=== PATIENT | male | born 1930 | race Caucasian/White ===

== ENCOUNTER 2017-01-21 13:45 | Observation (INO) | payer MEDICARE ==
[2017-01-21] VITALS (10 sets, daily range): BP systolic 133–171; BP diastolic 69–84; PULSE 49–60; RESP 16–28; TEMP 98.1–98.3; O2SAT 94–100
[~2017-01-21] VITALS: Ht 177.8 cm; Wt 89.0 kg
[2017-01-21] MEDS ORDERED: SODIUM CHLORIDE 0.9% FLUSH 10 ML FLUSH IVF PRN (14:15)
[2017-01-21] MEDS ORDERED: SODIUM CHLORID 0.9% 500 ML INJ 500 ML IV ONE (14:15)
[2017-01-21] MEDS ORDERED: ASPIRIN 81 MG CHEW TAB PO ONE (14:15)
[2017-01-21 14:48] LABS: AUTOMATED NEUTROPHIL # 5.8 TH/MM3 (1.8-7.7); BASOPHIL # 0.1 TH/MM3 (0-0.2); BASOPHIL % 0.7 % (0.0-2.0); EOSINOPHIL # 0.6 TH/MM3 (0-0.4); EOSINOPHIL % 7.6 % (0.0-4.0); HEMATOCRIT 42.4 % (39.0-51.0); HEMO FLAGS DIFF FINAL; LYMPH % 13.3 % (9.0-44.0); LYMPHOCYTE # 1.1 TH/MM3 (1.0-4.8); MEAN CELL VOLUME 90.5 FL (80.0-100.0); MEAN CORPUSCULAR HEMOGLOBIN 30.2 PG (27.0-34.0); MEAN CORPUSCULAR HGB CONC 33.4 % (32.0-36.0); MONO % 7.4 % (0.0-8.0); PLATELET COUNT 214 TH/MM3 (150-450); RED BLOOD COUNT 4.69 MIL/MM3 (4.50-5.90); RED CELL DISTRIBUTION WIDTH 14.1 % (11.6-17.2); WHITE BLOOD COUNT 8.2 TH/MM3 (4.0-11.0)
[2017-01-21 15:08] LABS: ALT (GPT) 30 U/L (12-78); ANION GAP 6 MEQ/L (5-15); AST (GOT) 15 U/L (15-37); BICARBONATE 26.9 MEQ/L (21.0-32.0); BLOOD UREA NITROGEN 28 MG/DL (7-18); CHLORIDE 108 MEQ/L (98-107); GLOMERULAR FILTRATION RATE 43 ML/MIN (>89); MAGNESIUM 2.4 MG/DL (1.5-2.5); POTASSIUM 4.7 MEQ/L (3.5-5.1); SODIUM (NA) 141 MEQ/L (136-145)
[2017-01-21 15:09] LABS: PROTHROMBIN TIME - PATIENT 10.8 SEC (9.8-11.6)
[2017-01-21 15:13] LABS: ALKALINE PHOSPHATASE 94 U/L (45-117); TOTAL BILIRUBIN ADULT 0.5 MG/DL (0.2-1.0)
--- NOTE | 2017-01-21 15:19 | PD ---
HPI Chief Complaint: Chest Pain Time Seen by Provider: 13:56 Travel History International Travel<30 days: No Contact w/Intl Traveler<30days: No Traveled to known affect area: No History of Present Illness HPI Is an 86-year-old man who presents to the emergency department complaining of chest pain. He had a little bit of chest pain yesterday when its own. This afternoon about 30 minutes prior to arrival he had the recurrence of the chest pain. He was happened while he was sitting down. It was consistent and worse and yesterday until he called him once. 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 He is going to follow-up with Dr. Fox. He has not had a stress test in the past 3+ years. He does not get chest pain regularly. He otherwise had been feeling generally well and healthy. No recent illness or injury. No recent change in exercise tolerance. No other complaints. History Past Medical History Narrative Medical CAD, he previous SC, previous CABG in approximately 2010 or so Hyperlipidemia Hypertension Tetanus Vaccination: < 5 Years Influenza Vaccination: Yes Social History Alcohol Use: Yes (occu) Tobacco Use: No Allergies-Medications (Allergen,Severity, Reaction): Coded Allergies: meperidine (Verified Adverse Reaction, Intermediate, Nausea/Vomiting, ) Review of Systems Except as stated in HPI: all other systems reviewed are Neg Physical Exam Narrative GENERAL: Well-appearing 86-year-old man, no acute distress. SKIN: Focused skin assessment warm/dry. HEAD: Atraumatic. Normocephalic. CARDIOVASCULAR: Regular rate and rhythm. No murmur appreciated. RESPIRATORY: No accessory muscle use. Clear to auscultation. Breath sounds equal bilaterally. GASTROINTESTINAL: Abdomen soft, non-tender, nondistended. Hepatic and splenic margins not palpable. MUSCULOSKELETAL: No obvious deformities. No edema. NEUROLOGICAL: Awake and alert. No obvious cranial nerve deficits. Motor grossly within normal limits. Normal speech. PSYCHIATRIC: Appropriate mood and affect; insight and judgment normal. Data Data Last Documented VS Vital Signs Date Time Temp Pulse Resp B/P (MAP) Pulse Ox O2 Delivery O2 Flow Rate FiO2 01/21/17 14:26 98 Nasal Cannula 2.00 01/21/17 14:26 58 24 133/ 01/21/17 13:52 98.3 Orders Orders Electrocardiogram (01/21/17 14:11) Ckmb (Isoenzyme) Profile (01/21/17 14:11) Complete Blood Count With Diff (01/21/17 14:11) Comprehensive Metabolic Panel (01/21/17 14:11) Magnesium (Mg) (01/21/17 14:11) Prothrombin Time / Inr (Pt) (01/21/17 14:11) Act Partial Throm Time (Ptt) (01/21/17 14:11) Troponin I (01/21/17 14:11) Lipase (01/21/17 14:11) Chest, Single Ap (01/21/17 14:11) Ecg Monitoring (01/21/17 14:11) Bilateral Bp Monitoring (01/21/17 14:11) Iv Access Insert/Monitor (01/21/17 14:11) Oximetry (01/21/17 14:11) Oxygen Administration (01/21/17 14:11) Aspirin Chew (Aspirin Chew) (01/21/17 14:15) Sodium Chloride 0.9% Flush (Ns Flush) (01/21/17 14:15) Sodium Chlorid 0.9% 500 Ml Inj (Ns 500 M (01/21/17 14:15) Labs Laboratory Tests Test 01/21/17 14:00 White Blood Count 8.2 TH/MM3 Red Blood Count 4.69 MIL/MM3 Hemoglobin 14.2 GM/DL Hematocrit 42.4 % Mean Corpuscular Volume 90.5 FL Mean Corpuscular Hemoglobin 30.2 PG Mean Corpuscular Hemoglobin Concent 33.4 % Red Cell Distribution Width 14.1 % Platelet Count 214 TH/MM3 Mean Platelet Volume 8.9 FL Neutrophils (%) (Auto) 71.0 % Lymphocytes (%) (Auto) 13.3 % Monocytes (%) (Auto) 7.4 % Eosinophils (%) (Auto) 7.6 % Basophils (%) (Auto) 0.7 % Neutrophils # (Auto) 5.8 TH/MM3 Lymphocytes # (Auto) 1.1 TH/MM3 Monocytes # (Auto) 0.6 TH/MM3 Eosinophils # (Auto) 0.6 TH/MM3 Basophils # (Auto) 0.1 TH/MM3 CBC Comment DIFF FINAL Differential Comment Prothrombin Time 10.8 SEC Prothromb Time International Ratio 1.0 RATIO Activated Partial Thromboplast Time 25.0 SEC Blood Urea Nitrogen 28 MG/DL Creatinine 1.56 MG/DL Random Glucose 90 MG/DL Total Protein 7.7 GM/DL Albumin 3.8 GM/DL Calcium Level 8.5 MG/DL Magnesium Level 2.4 MG/DL Alkaline Phosphatase 94 U/L Aspartate Amino Transf (AST/SGOT) 15 U/L Alanine Aminotransferase (ALT/SGPT) 30 U/L Total Bilirubin 0.5 MG/DL Sodium Level 141 MEQ/L Potassium Level 4.7 MEQ/L Chloride Level 108 MEQ/L Carbon Dioxide Level 26.9 MEQ/L Anion Gap 6 MEQ/L Estimat Glomerular Filtration Rate 43 ML/MIN Total Creatine Kinase 77 U/L Troponin I LESS THAN 0.02 NG/ML Lipase 99 U/L MDM Medical Decision Making Medical Screen Exam Complete: Yes Emergency Medical Condition: Yes Interpretation(s) My review of EKG: Sinus bradycardia at a rate of 58, right bundle branch block with inferior Q waves, 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 LABS: CBC unremarkable. CMP remarkable for mildly elevated BUN/creatinine. Troponin negative. Lipase unremarkable. Coags unremarkable. My review of chest x-ray: No acute disease. Differential Diagnosis ACS, gastritis, pancreatitis, angina, other Narrative Course Medical decision making INITIAL: Is an 86-year-old man who presents to the emergency department with chest pain. History of ACS. Chest pain concerning for angina. Looks well now. No pain now. We'll check labs, x-ray, reassess. Likely chest pain Center. Diagnosis Primary Impression: Chest pain Filiberto Chapa MD Jan 21, 2017 15:19
[2017-01-21 15:20] LABS: CREATINE KINASE 77 U/L (39-308)
[2017-01-21] MEDS ORDERED: LIPI10TA PO (15:28)
[2017-01-21] MEDS ORDERED: ASPI81CH CHEW (15:28)
[2017-01-21] MEDS ORDERED: ZETI10TA5 PO (15:28)
[2017-01-21] MEDS ORDERED: ATEN25TA PO (15:28)
[2017-01-21] MEDS ORDERED: LISI10TA3 PO (15:28)
[2017-01-21] MEDS ORDERED: LAMO100 PO (15:28)
--- NOTE | 2017-01-21 15:53 | RADRPT ---
EXAM DATE/TIME: 01/21/2017 14:18 [facility] COMPARISON: No previous studies available for comparison. INDICATIONS : Chest pain. MEDICAL HISTORY : Cardiovascular disease. SURGICAL HISTORY : CABG. ENCOUNTER: Initial ACUITY: 1 day PAIN SCORE: 6/10 LOCATION: Bilateral chest FINDINGS: A single view of the chest demonstrates the lungs to be symmetrically aerated without evidence of mas s, infiltrate or effusion. The cardiomediastinal contours are unremarkable. Osseous structures are intact. Evidence of prior median sternotomy and CABG. Mild eventration right hemidiaphragm CONCLUSION: The lungs are clear. Roland Lovett MD on January 21, 2017 at 15:50 Board Certified Radiologist. This report was verified electronically.
[2017-01-21] MEDS ORDERED: ACETAMINOPHEN/HYDROcodone 325 MG/7.5 MG TAB PO PRN (16:45)
[2017-01-21] MEDS ORDERED: ACETAMINOPHEN 500 MG CPLT PO PRN (16:45)
[2017-01-21] MEDS ORDERED: RESP: ALBUTEROL 2.5 MG/IPRATROPIUM 0.5 MG NEB (PRN) INH (16:45)
[2017-01-21] MEDS ORDERED: cloNIDine HCL 0.1 MG TAB PO PRN (16:45)
[2017-01-21] MEDS ORDERED: ALPRAZolam 0.25 MG TAB PO PRN (16:45)
[2017-01-21] MEDS ORDERED: RESP: ALBUTEROL 2.5 MG/IPRATROPIUM 0.5 MG NEB (SCH) INH ONE (16:45)
[2017-01-21] MEDS ORDERED: ONDANSETRON HCL 4 MG/2 ML VIAL IV PRN (16:45)
[2017-01-21] MEDS ORDERED: SODIUM CHLORIDE 0.9% FLUSH 5 ML FLUSH IVF PRN (16:45)
--- NOTE | 2017-01-21 16:52 | HHI.HP ---
[facility] Primary Care Physician Raheem Mojica DO Chief Complaint Chest pain History of Present Illness This is a 86-year-old male that presents to ED with his family with a complaint of 2 episodes of chest discomfort. He has history of CAD and states he had a CABG 5-7 years ago. 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 Just moved to this area a few months ago. States that yesterday he had a sharp central chest discomfort lasted about a minute. Then again the same type discomfort occurred this morning also lasting about a minute. He was little short of breath. No nausea or diaphoresis. He also states that he has been coughing a little bit over last few days. Has been clear colored phlegm. No fevers or chills. States the discomfort he has been having is not similar to when he needed his bypass. States the discomfort is not exertional. Review of Systems General: Patient denies fevers, chills recent, and recent travel HEENT: Patient denies headache, sore throat, difficulty swallowing. Cardiovascular: Has the chest discomfort as mentioned above. Denies sensation of heart beating rapidly or irregularly. No syncope. Denies diaphoresis. Respiratory: [place] a little short of breath. Denies inspirational chest discomfort. He has been coughing up clear phlegm. Denies wheezing or hemoptysis. GI: Patient denies nausea, vomiting, diarrhea, abdominal pain, bloody stools. Musculoskeletal: Patient denies joint pain or edema. Denies calf pain or edema. Neurovascular: Patient denies numbness, tingling, weakness in extremities. Denies headache. Endocrine: Denies polyuria and polydipsia. Hematologic: Denies easy bruising. Skin: Denies rash or itching. Past Family Social History Allergies: Coded Allergies: meperidine (Verified Adverse Reaction, Intermediate, Nausea/Vomiting, ) Past Medical History CAD with a CABG 5-7 years ago. Hypertension, hyperlipidemia, seizure disorder. Denies diabetes. Past Surgical History CABG. Reported Medications Reported Meds & Active Scripts Active Reported Lamictal (Lamotrigine) 100 Mg Tab 100 Mg PO BID Lisinopril 10 Mg Tab 10 Mg PO DAILY Zetia (Ezetimibe) 10 Mg Tab 10 Mg PO DAILY Atenolol 25 Mg Tab 20 Mg PO BID Lipitor (Atorvastatin Calcium) 10 Mg Tab 10 Mg PO HS Aspirin 81 Mg Chew 162 Mg CHEW ONCE Active Ordered Medications Current Medications Medications (Trade) Dose Ordered Sig/Ava Route Start Time Stop Time Status Last Admin (NS Flush) 2 ml UNSCH PRN IVF 01/21/17 14:15 Family History There is family history of CAD. Social History Patient does not smoke. Denies alcohol or illicit drugs. Physical Exam Vital Signs Vital Signs Date Time Temp Pulse Resp B/P (MAP) Pulse Ox O2 Delivery O2 Flow Rate FiO2 01/21/17 14:26 98 Nasal Cannula 2.00 01/21/17 14:26 58 24 133/ 98 Nasal Cannula 2.00 01/21/17 13:52 98.3 60 28 133/84 (100) 96 Physical Exam GENERAL: This is a well-nourished, well-developed patient, in no apparent distress. Patient speaks in clear complete sentences. Patient is pleasant. HEENT: Head is atraumatic and normocephalic. Neck is supple without lymphadenopathy and trachea is midline. No JVD or carotid bruits. CARDIOVASCULAR: Regular rate and rhythm without murmurs, gallops, or rubs. RESPIRATORY: There are bilateral expiratory wheezes more so at the bases. Breath sounds equal bilaterally. No rales, or rhonchi. Chest wall is nontender. No use of accessory muscles. GASTROINTESTINAL: Abdomen is nontender, nondistended. Abdomen soft. No obvious pulsatile mass or bruit. No CVA tenderness. Strong femoral pulses bilaterally. Normal bowel sounds in all quadrants. MUSCULOSKELETAL: Patient is moving upper and lower extremities freely. No calf tenderness or edema, no Homans sign. Strong pulses in upper and lower extremities. NEUROLOGICAL: Patient is alert and oriented. Cranial nerves 2-12 are grossly intact. No focal deficits and speech is clear. SKIN: No rash and turgor is normal. Laboratory Laboratory Tests Test 01/21/17 14:00 White Blood Count 8.2 Red Blood Count 4.69 Hemoglobin 14.2 Hematocrit 42.4 Mean Corpuscular Volume 90.5 Mean Corpuscular Hemoglobin 30.2 Mean Corpuscular Hemoglobin Concent 33.4 Red Cell Distribution Width 14.1 Platelet Count 214 Mean Platelet Volume 8.9 Neutrophils (%) (Auto) 71.0 Lymphocytes (%) (Auto) 13.3 Monocytes (%) (Auto) 7.4 Eosinophils (%) (Auto) 7.6 Basophils (%) (Auto) 0.7 Neutrophils # (Auto) 5.8 Lymphocytes # (Auto) 1.1 Monocytes # (Auto) 0.6 Eosinophils # (Auto) 0.6 Basophils # (Auto) 0.1 CBC Comment DIFF FINAL Differential Comment Prothrombin Time 10.8 Prothromb Time International Ratio 1.0 Activated Partial Thromboplast Time 25.0 Blood Urea Nitrogen 28 Creatinine 1.56 Random Glucose 90 Total Protein 7.7 Albumin 3.8 Calcium Level 8.5 Magnesium Level 2.4 Alkaline Phosphatase 94 Aspartate Amino Transf (AST/SGOT) 15 Alanine Aminotransferase (ALT/SGPT) 30 Total Bilirubin 0.5 Sodium Level 141 Potassium Level 4.7 Chloride Level 108 Carbon Dioxide Level 26.9 Anion Gap 6 Estimat Glomerular Filtration Rate 43 Total Creatine Kinase 77 Troponin I LESS THAN 0.02 Lipase 99 Result Diagram: 01/21/17 1400 01/21/17 1400 Imaging Last 48 hours Impressions Chest X-Ray 01/21/17 1411 Signed Impressions: Service Date/Time: Saturday, January 21, 2017 14:18 - CONCLUSION: The lungs are clear. Roland Lovett MD Course Initial EKG has sinus rhythm with right bundle muna block. Caprini VTE Risk Assessment Caprini VTE Risk Assessment: Mod/High Risk (score >= 2) Caprini Risk Assessment Model Point Value = 1 Point Value = 2 Point Value = 3 Point Value = 5 Age 41-60 Minor surgery BMI > 25 kg/m2 Swollen legs Varicose veins or History of unexplained or recurrent spontaneous Oral contraceptives or hormone replacement Sepsis (< 1 month) Serious lung disease, including pneumonia (< 1 month) Abnormal pulmonary function Acute myocardial infarction Congestive heart failure (< 1 month) History of inflammatory bowel disease Medical patient at bed rest Age 61-74 Arthroscopic surgery Major open surgery (> 45 min) Laparoscopic surgery (> 45 min) Malignancy Confined to bed (> 72 hours) Immobilizing plaster cast Central venous access Age >= 75 History of VTE Family history of VTE Factor V Leiden Prothrombin 26115G Lupus anticoagulant Anticardiolipin antibodies Elevated serum homocysteine Heparin-induced thrombocytopenia Other congenital or acquired thrombophilia Stroke (< 1 month) Elective arthroplasty Hip, pelvis, or leg fracture Acute spinal cord injury (< 1 month) Prophylaxis Regimen Total Risk Factor Score Risk Level Prophylaxis Regimen 0-1 Low Early ambulation 2 Moderate Order ONE of the following: *Sequential Compression Device (SCD) *Heparin 5000 units SQ BID 3-4 Higher Order ONE of the following medications: *Heparin 5000 units SQ TID *Enoxaparin/Lovenox 40 mg SQ daily (WT < 150 kg, CrCl > 30 mL/min) *Enoxaparin/Lovenox 30 mg SQ daily (WT < 150 kg, CrCl > 10-29 mL/min) *Enoxaparin/Lovenox 30 mg SQ BID (WT < 150 kg, CrCl > 30 mL/min) AND/OR *Sequential Compression Device (SCD) 5 or more Highest Order ONE of the following medications: *Heparin 5000 units SQ TID (Preferred with Epidurals) *Enoxaparin/Lovenox 40 mg SQ daily (WT < 150 kg, CrCl > 30 mL/min) *Enoxaparin/Lovenox 30 mg SQ daily (WT < 150 kg, CrCl > 10-29 mL/min) *Enoxaparin/Lovenox 30 mg SQ BID (WT < 150 kg, CrCl > 30 mL/min) AND *Sequential Compression Device (SCD) Assessment and Plan Assessment and Plan * Chest pain: Shunt will continue to have serial cardiac enzymes and EKGs for ruling out purposes. He was seen by Dr. Amanuel Hays of cardiology in the chest pain center and will likely have a Lexiscan in the morning if he rules out. He'll be discharged stress test is nonischemic. He'll be given a DuoNeb for his wheezing. * History of CAD: Patient has had a bypass. He needs to make arrangements to follow-up with a local ruffling machine operator. Resume his medications. * Hypertension: Continue current medication. * Hyperlipidemia: Continue current medication. * Seizure disorder: Continue current medication. Patient is stable at this time. He is agreeable to this plan. Jamari Mancuso Jan 21, 2017 16:52
[2017-01-21 18:32] LABS: CREATINE KINASE 73 U/L (39-308)
[2017-01-21] MEDS: SODIUM CHLORIDE 0.9% FLUSH 5 ML FLUSH IVF SCH (20:04)
[2017-01-21] MEDS: lamoTRIgine 100 MG TAB PO SCH (20:04)
[2017-01-21] MEDS: ATENOLOL 25 MG TAB PO SCH (20:04)
[2017-01-21] MEDS ORDERED: ATORVASTATIN 10 MG TAB PO SCH (21:00)
[2017-01-21 22:36] LABS: CREATINE KINASE 64 U/L (39-308)
[2017-01-22 01:46] VITALS: BP 159/68; PULSE 52; RESP 18; TEMP 98.6; O2SAT 96
--- NOTE | 2017-01-22 07:32 | EKG ---
Date Performed: 01/21/2017 Time Performed: 17:13:31 PTAGE: 86 years EKG: SINUS BRADYCARDIA INDETERMINATE AXIS RIGHT BUNDLE BRANCH BLOCK INFERIOR MYOCARDIAL INFARCTI ON ABNORMAL ECG Since PREVIOUS TRACING , no significant change noted PREVIOUS TRACIN01/21/2017 13.54 DOCTOR: Emili Bowers Interpretating Date/Time 01/22/2017 07:31:22
--- NOTE | 2017-01-22 07:33 | EKG ---
Date Performed: 01/21/2017 Time Performed: 13:54:38 PTAGE: 86 years EKG: SINUS BRADYCARDIA INDETERMINATE AXIS RIGHT BUNDLE BRANCH BLOCK INFERIOR MYOCARDIAL INFARCTI ON ABNORMAL ECG Since previous tracing, no significant change noted NO PREVIOUS TRACING DOCTOR: Emili Bowers Interpretating Date/Time 01/22/2017 07:32:33
[2017-01-22 07:56] VITALS: BP 147/73; PULSE 54; RESP 18; TEMP 97.9; O2SAT 95
[2017-01-22 08:00] VITALS: PULSE 60
[2017-01-22 08:24] VITALS: O2SAT 94
[2017-01-22] MEDS ORDERED: PANTOPRAZOLE SOD 40 MG DELAYED RELEASE TAB PO SCH (09:00)
[2017-01-22] MEDS ORDERED: ASPIRIN 325 MG TAB PO SCH (09:00)
[2017-01-22] MEDS: SODIUM CHLORIDE 0.9% FLUSH 5 ML FLUSH IVF SCH (09:00)
[2017-01-22] MEDS ORDERED: EZETIMIBE 10 MG TAB PO SCH (09:00)
[2017-01-22] MEDS ORDERED: LISINOPRIL 10 MG TAB PO SCH (09:00)
[2017-01-22] MEDS ORDERED: REGADENOSON INJ 0.4 MG/5 ML SYR ONE (09:48)
--- NOTE | 2017-01-22 11:21 | RADRPT ---
EXAM DATE/TIME: 01/22/2017 08:58 [facility] COMPARISON: No previous studies available for comparison. INDICATIONS : Mid chest pain for one day. Angina. DOSE: 25.8 mCi Tc99m Myoview at stress. 8.7 mCi Tc99m Myoview at rest. 0.4 mg Lexiscan STRESS SYMPTOMS: Short of breath. EJECTION FRACTION: 26% MEDICAL HISTORY : Cardiovascular disease. Hypertension. SURGICAL HISTORY : CABG ENCOUNTER: Initial ACUITY: 1 day PAIN SCALE: 7/10 LOCATION: Midsternal chest TECHNIQUE: The patient underwent pharmacologic stress with infusion of prescribed dose. Continuous ECG tracing was monitored during stress. Gated SPECT imaging was performed after stress and conventional SPECT i maging was performed at rest. The examination was performed on a SPECT/CT scanner, both attenuation and non-corrected datasets were reviewed. FINDINGS: DISTRIBUTION: The maximum perfused segment at stress is in the septal wall. PERFUSION STUDY: There is mildly to moderately diminished perfusion throughout the posterior basal and inferior henry extending to the cardiac apex. No definite evidence of redistribution. GATED STUDY: Moderate left ventricular chamber enlargement with diffuse hypokinesis. CONCLUSION: Moderate size moderate severity posterior basal, inferior and apical perfusion abnormalities. No defi nite ischemia. Severe LV dysfunction and left ventricular chamber dilatation RISK CATEGORY: High (>3% Annual Mortality Rate) Raheem Price MD on January 22, 2017 at 11:15 Board Certified Radiologist. This report was verified electronically.
[2017-01-22] MEDS: ATENOLOL 25 MG TAB PO SCH (11:26)
[2017-01-22] MEDS: lamoTRIgine 100 MG TAB PO SCH (11:26)
--- NOTE | 2017-01-22 12:21 | HHI.DCPOC ---
Discharge Care Plan Diagnosis: (1) Cardiomyopathy (2) CAD (coronary artery disease) (3) Hx of CABG (4) Hypertension (5) Hyperlipidemia (6) Chest pain Goals to Promote Your Health * To prevent worsening of your condition and complications * To maintain your health at the optimal level Directions to Meet Your Goals Take your medications as prescribed Follow your dietary instruction Follow activity as directed Keep your appointments as scheduled Take your immunizations and boosters as scheduled If your symptoms worsen call your PCP, if no PCP go to Urgent Care Center or Emergency Room Smoking is Dangerous to Your Health. Avoid second hand smoke Call the 24-hour hour crisis hotline for domestic abuse at Jamari Mancuso Jan 22, 2017 12:21
--- NOTE | 2017-01-22 22:25 | TR ---
Date Performed: 01/22/2017 Time Performed: 09:50:17 DOCTOR: Emili Bowers DRUG LIST: CLINICAL HISTORY: REASON FOR TEST: REASON FOR ENDING: OBSERVATION: CONCLUSION: Lexiscan stress test was performed under standard four minute protocol. Radionucl[place] e was injected one minute prior to ending the test. No electrocardiographic abormalities were present to suggest ischemia. Nuclear imaging and interpretation are pending. COMMENTS:
--- NOTE | 2017-01-23 12:04 | EKG ---
Date Performed: 01/22/2017 Time Performed: 07:40:17 PTAGE: 86 years EKG: SINUS BRADYCARDIA RIGHT BUNDLE BRANCH BLOCK INFERIOR MYOCARDIAL INFARCTION ABNORMAL ECG PREVIOUS TRACING : 01/21/2017 17.13 No significant change from previous tracing noted. DOCTOR: Demetrio Nicholson Interpretating Date/Time 01/23/2017 12:02:44
== END 2017-01-22 13:14 | disposition home or self-care (01) ==
LOC: NEPC 13:45 → NEDA 15:31 → NEPGCP 17:42
PROVIDERS: ADMIT Internal Medicine Cardiovascular Disease; ATTEND Internal Medicine Cardiovascular Disease
DX: I42.9 Cardiomyopathy, unspecified (principal); I11.0 Hypertensive heart disease with heart failure; I25.10 Atherosclerotic heart disease of native coronary artery without angina pectoris; R94.31 Abnormal electrocardiogram [ECG] [EKG]; E78.5 Hyperlipidemia, unspecified; Z95.1 Presence of aortocoronary bypass graft
CPT/HCPCS: 71010; 78452; 80053; 82550; 83690; 83735; 84484; 85025; 85610; 85730; 93005; 93017; 94664; 99285; A9502; G0378; J2785; J7040

== ENCOUNTER 2017-04-02 17:55 | Emergency (ER) | payer MEDICARE ==
[~2017-04-02] VITALS: Ht 177.8 cm; Wt 90.0 kg
[~2017-04-02 17:55] MED LIST: ASPI-516 CHEW; ATEN25TA PO; EZET10 PO; LAMO100 PO; LIPI10TA PO; LISI10TA3 PO
[2017-04-02 17:56] VITALS: BP 166/77; PULSE 61; RESP 16; TEMP 98.8; O2SAT 95
[2017-04-02] MEDS ORDERED: IOHEXOL 350 MG/ML 10 ML VIAL (for RAD DIAG) IVCONTRAST ONE (17:56)
[2017-04-02] MEDS ORDERED: MORPHINE SULFATE 4 MG/ML INJ IV PUSH ONE (19:00)
[2017-04-02] MEDS ORDERED: SODIUM CHLORIDE 0.9% FLUSH 10 ML FLUSH IV FLUSH PRN (19:00)
[2017-04-02] MEDS ORDERED: SODIUM CHLORID 0.9% 500 ML INJ 500 ML IV ONE (19:00)
[2017-04-02] MEDS ORDERED: ONDANSETRON HCL 4 MG/2 ML VIAL IVP ONE (19:00)
--- NOTE | 2017-04-02 19:06 | PD ---
HPI Chief Complaint: Abdominal Pain Time Seen by Provider: 18:43 Travel History International Travel<30 days: No Contact w/Intl Traveler<30days: No Traveled to known affect area: No History of Present Illness HPI 86-year-old male presents to the emergency department with sudden onset left anterior lower quadrant pain which started approximately 3 PM this afternoon. Patient states no nausea vomiting or diarrhea. He states his pain is now worsening and is intermittent with the worst of 10 over 10 with certain movements. Patient denies previous history of diverticulitis. Patient has had colonoscopies in the past but denies significant polyps or Colon disease. Patient denies fever or chills or chest pain. 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 ) Prostatectomy: Yes Other Surgery: Yes (3 NECK SURGERIES) Social History Alcohol Use: Yes (occu) Tobacco Use: No Substance Use: No Allergies-Medications (Allergen,Severity, Reaction): Coded Allergies: meperidine (Verified Adverse Reaction, Intermediate, Nausea/Vomiting, ) Reported Meds & Prescriptions Reported Meds & Active Scripts Active Reported Lamictal (Lamotrigine) 100 Mg Tab 100 Mg PO BID Lisinopril 10 Mg Tab 10 Mg PO DAILY Zetia (Ezetimibe) 10 Mg Tab 10 Mg PO DAILY Atenolol 25 Mg Tab 20 Mg PO BID Lipitor (Atorvastatin Calcium) 10 Mg Tab 10 Mg PO HS Aspirin 81 Mg Chew 162 Mg CHEW ONCE Review of Systems Except as stated in HPI: all other systems reviewed are Neg General / Constitutional: No: Fever Eyes: No: Visual changes HENT: No: Headaches Cardiovascular: No: Chest Pain or Discomfort Respiratory: No: Shortness of Breath Gastrointestinal: Positive: Abdominal Pain, No: Nausea, Vomiting, Diarrhea Genitourinary: No: Dysuria Musculoskeletal: No: Pain Skin: No Rash Neurologic: No: Weakness Psychiatric: No: Depression Endocrine: No: Polydipsia Hematologic/Lymphatic: No: Easy Bruising Physical Exam Narrative GENERAL: Patient appears in no acute distress. SKIN: Warm and dry. Normal color. Normal turgor. No rash. HEAD: Atraumatic. Normocephalic. EYES: Pupils equal and round. No scleral icterus. No injection or drainage. ENT: No nasal bleeding or discharge. Mucous membranes pink and moist. Pharynx is clear. Airway is patent. NECK: Trachea midline. Supple and nontender. CARDIOVASCULAR: Regular rate and rhythm. No murmurs gallops or rubs appreciated. RESPIRATORY: No accessory muscle use. Clear to auscultation. Breath sounds equal bilaterally. GASTROINTESTINAL: Abdomen soft, she has significant point tenderness in the left lower quadrant, nondistended. Decreased bowel sounds are noted throughout. No guarding. No CVA tenderness. Hepatic and splenic margins not palpable. MUSCULOSKELETAL: Extremities without clubbing, cyanosis, or edema. No obvious deformities. NEUROLOGICAL: Awake and alert. No obvious cranial nerve deficits. Motor grossly within normal limits. Five out of 5 muscle strength in the arms and legs. Normal speech. PSYCHIATRIC: Appropriate mood and affect; insight and judgment normal. Data Data Last Documented VS Vital Signs Date Time Temp Pulse Resp B/P (MAP) Pulse Ox O2 Delivery O2 Flow Rate FiO2 04/02/17 21:19 16 04/02/17 20:14 55 173/86 (115) 96 Nasal Cannula 04/02/17 17:56 98.8 Orders Orders Complete Blood Count With Diff (04/02/17 18:50) Comprehensive Metabolic Panel (04/02/17 18:50) Lipase (04/02/17 18:50) Lactic Acid (04/02/17 18:50) Prothrombin Time / Inr (Pt) (04/02/17 18:50) Act Partial Throm Time (Ptt) (04/02/17 18:50) Urinalysis - C+S If Indicated (04/02/17 18:50) Ct Abd/Pel W Iv Contrast(Rout) (04/02/17 18:50) Iv Access Insert/Monitor (04/02/17 18:50) Ecg Monitoring (04/02/17 18:50) Oximetry (04/02/17 18:50) Morphine Inj (Morphine Inj) (04/02/17 19:00) Ondansetron Inj (Zofran Inj) (04/02/17 19:00) Sodium Chloride 0.9% Flush (Ns Flush) (04/02/17 19:00) Electrocardiogram (04/02/17 18:50) Sodium Chlorid 0.9% 500 Ml Inj (Ns 500 M (04/02/17 19:00) Oral Contrast - Adult (04/02/17 18:58) Iohexol 350 Inj (Omnipaque 350 Inj) (04/02/17 17:56) Labs Laboratory Tests Test 04/02/17 18:55 White Blood Count 7.9 TH/MM3 Red Blood Count 4.62 MIL/MM3 Hemoglobin 14.1 GM/DL Hematocrit 41.2 % Mean Corpuscular Volume 89.0 FL Mean Corpuscular Hemoglobin 30.5 PG Mean Corpuscular Hemoglobin Concent 34.3 % Red Cell Distribution Width 13.9 % Platelet Count 199 TH/MM3 Mean Platelet Volume 9.0 FL Neutrophils (%) (Auto) 67.3 % Lymphocytes (%) (Auto) 14.6 % Monocytes (%) (Auto) 8.3 % Eosinophils (%) (Auto) 9.1 % Basophils (%) (Auto) 0.7 % Neutrophils # (Auto) 5.3 TH/MM3 Lymphocytes # (Auto) 1.2 TH/MM3 Monocytes # (Auto) 0.7 TH/MM3 Eosinophils # (Auto) 0.7 TH/MM3 Basophils # (Auto) 0.1 TH/MM3 CBC Comment DIFF FINAL Differential Comment Prothrombin Time 10.9 SEC Prothromb Time International Ratio 1.0 RATIO Activated Partial Thromboplast Time 26.7 SEC Blood Urea Nitrogen 29 MG/DL Creatinine 1.43 MG/DL Random Glucose 89 MG/DL Total Protein 7.9 GM/DL Albumin 4.1 GM/DL Calcium Level 8.4 MG/DL Alkaline Phosphatase 96 U/L Aspartate Amino Transf (AST/SGOT) 17 U/L Alanine Aminotransferase (ALT/SGPT) 30 U/L Total Bilirubin 0.5 MG/DL Sodium Level 136 MEQ/L Potassium Level 4.3 MEQ/L Chloride Level 106 MEQ/L Carbon Dioxide Level 24.9 MEQ/L Anion Gap 5 MEQ/L Estimat Glomerular Filtration Rate 47 ML/MIN Lactic Acid Level 0.6 mmol/L Lipase 118 U/L MDM Medical Decision Making Medical Screen Exam Complete: Yes Emergency Medical Condition: Yes Differential Diagnosis Left lower quadrant pain. Renal colic. Diverticulitis. Constipation. Narrative Course Patient appears medically stable at time of exam per Labs ordered including CBC, CMP, lactic acid, lipase, urinalysis. EKG is done showing sinus bradycardia at 50 bpm without significant acute ST-T changes. IV access is obtained patient is given 2 mg morphine IV as well as [address] of the abdomen and pelvis with oral and IV contrast is ordered. Patient is given a 500 mL normal saline bolus. CBC is unremarkable. Coagulation studies are normal. Lactic acid is normal at 0.6. CMP is unremarkable except for BUN of 29, creatinine 1.43, GFR is 47. This is actually improved from his last visit of January 21, 2017. Abdominal CT shows: CONCLUSION: 1. The cause of the left lower quadrant pain is not seen. 2. There are few scattered colonic diverticula. 3. Small umbilical hernia containing mesenteric fat. 4. IVC filter. 5. Renal cysts. 6. Bowel prostheses. 7. 7 mm focal density at the right midlung. This could be a focal area pleural thickening or a interfissural lymph node. It is thought this could be followed with a noncontrast CT examination the chest in 6 months. Findings were discussed with Dr. Grayson as well as the patient. Patient is felt to have abdominal wall pain, and will be treated symptomatically with Tylenol and tramadol 50 mg every 6 hours when necessary # 20 as needed. Patient to follow-up with his primary care physician or return to emergency department if symptoms worsen as discussed. Diagnosis Primary Impression: Abdominal wall pain in left lower quadrant Referrals: Primary Care Physician Patient Instructions: Abdominal Pain (ED), General Instructions Additional Instructions: CBC is unremarkable. Coagulation studies are normal. Lactic acid is normal at 0.6. CMP is unremarkable except for BUN of 29, creatinine 1.43, GFR is 47. This is actually improved from his last visit of January 21, 2017. Abdominal CT shows: CONCLUSION: 1. The cause of the left lower quadrant pain is not seen. 2. There are few scattered colonic diverticula. 3. Small umbilical hernia containing mesenteric fat. 4. IVC filter. 5. Renal cysts. 6. Bowel prostheses. 7. 7 mm focal density at the right midlung. This could be a focal area pleural thickening or a interfissural lymph node. It is thought this could be followed with a noncontrast CT examination the chest in 6 months. Findings were discussed with Dr. Grayson as well as the patient. Patient is felt to have abdominal wall pain, and will be treated symptomatically with Tylenol and tramadol 50 mg every 6 hours when necessary # 20 as needed. Patient to follow-up with his primary care physician or return to emergency department if symptoms worsen as discussed. Med/Other Pt SpecificInfo: Prescription(s) given Disposition: 01 DISCHARGE HOME Condition: Stable Marquise Sanchez Apr 02, 2017 19:06
[2017-04-02 19:27] LABS: AUTOMATED NEUTROPHIL # 5.3 TH/MM3 (1.8-7.7); BASOPHIL # 0.1 TH/MM3 (0-0.2); BASOPHIL % 0.7 % (0.0-2.0); EOSINOPHIL # 0.7 TH/MM3 (0-0.4); EOSINOPHIL % 9.1 % (0.0-4.0); HEMATOCRIT 41.2 % (39.0-51.0); HEMO FLAGS DIFF FINAL; LYMPH % 14.6 % (9.0-44.0); LYMPHOCYTE # 1.2 TH/MM3 (1.0-4.8); MEAN CORPUSCULAR HEMOGLOBIN 30.5 PG (27.0-34.0); MEAN CORPUSCULAR HGB CONC 34.3 % (32.0-36.0); MONO % 8.3 % (0.0-8.0); NEUT % 67.3 % (16.0-70.0); PLATELET COUNT 199 TH/MM3 (150-450); RED BLOOD COUNT 4.62 MIL/MM3 (4.50-5.90); RED CELL DISTRIBUTION WIDTH 13.9 % (11.6-17.2); WHITE BLOOD COUNT 7.9 TH/MM3 (4.0-11.0)
[2017-04-02 19:38] LABS: APTT (PATIENT) 26.7 SEC (24.3-30.1); PROTHROMBIN TIME - PATIENT 10.9 SEC (9.8-11.6)
[2017-04-02 19:42] LABS: ANION GAP 5 MEQ/L (5-15); AST (GOT) 17 U/L (15-37); BICARBONATE 24.9 MEQ/L (21.0-32.0); BLOOD UREA NITROGEN 29 MG/DL (7-18); CHLORIDE 106 MEQ/L (98-107); GLOMERULAR FILTRATION RATE 47 ML/MIN (>89); POTASSIUM 4.3 MEQ/L (3.5-5.1); SODIUM (NA) 136 MEQ/L (136-145)
[2017-04-02 19:43] LABS: ALT (GPT) 30 U/L (12-78)
[2017-04-02 19:45] LABS: ALKALINE PHOSPHATASE 96 U/L (45-117); TOTAL BILIRUBIN ADULT 0.5 MG/DL (0.2-1.0)
[2017-04-02 20:14] VITALS: BP 173/86; PULSE 55; RESP 16; O2SAT 96
[2017-04-02 21:19] VITALS: RESP 16
--- NOTE | 2017-04-02 21:54 | RADRPT ---
EXAM DATE/TIME: 04/02/2017 21:19 [facility] COMPARISON: No previous studies available for comparison. INDICATIONS : Patient complains of left lower quadrant pain. IV CONTRAST: 100 cc Omnipaque 350 (iohexol) IV ORAL CONTRAST: Prescribed oral contrast ingested. RADIATION DOSE: 8.37 CTDIvol (mGy) MEDICAL HISTORY : Cardiovascular disease. Hypertension. SURGICAL HISTORY : Prostatectomy. ENCOUNTER: Initial ACUITY: 1 day PAIN SCALE: 8/10 LOCATION: Left lower quadrant TECHNIQUE: Volumetric scanning of the abdomen and pelvis was performed. Using automated exposure control and ad justment of the mA and/or kV according to patient size, radiation dose was kept as low as reasonably achievable to obtain optimal diagnostic quality images. DICOM format image data is available electro nically for review and comparison. FINDINGS: LOWER LUNGS: There is elevation of the right hemidiaphragm. There some atelectasis at the posterior lung bases ronal aterally being more prominent on the right. There is a oval smooth 0.7 cm mass in the anterior right midlung. This appears associated with the minor fissure. Coronary artery calcifications are present. LIVER: Homogeneous density without lesion. There is no dilation of the biliary tree. No calcified gallston es. SPLEEN: Normal size without lesion. PANCREAS: Within normal limits. KIDNEYS: Bilateral renal cysts are seen. No hydronephrosis or renal stones are present. ADRENAL GLANDS: Within normal limits. VASCULAR: There is no aortic aneurysm. There are scattered atherosclerotic calcification seen. There is an IVC filter in place. BOWEL/MESENTERY: There a few scattered colonic diverticula without inflammatory change. ABDOMINAL WALL: There is a small umbilical hernia containing mesenteric fat. RETROPERITONEUM: There is no lymphadenopathy. BLADDER: No wall thickening or mass. REPRODUCTIVE: Within normal limits. INGUINAL: There is no lymphadenopathy or hernia. MUSCULOSKELETAL: There are mild prosthesis in place. These do cause streak artifact in the pelvis. There is degenerati ve change in the lumbar spine. CONCLUSION: 1. The cause of the left lower quadrant pain is not seen. 2. There are few scattered colonic diverticula. 3. Small umbilical hernia containing mesenteric fat. 4. IVC filter. 5. Renal cysts. 6. Bowel prostheses. 7. 7 mm focal density at the right midlung. This could be a focal area pleural thickening or a interf issural lymph node. It is thought this could be followed with a noncontrast CT examination the chest in 6 months. Raheem Oliva MD on April 02, 2017 at 21:45 Board Certified Radiologist. This report was verified electronically.
[2017-04-02] MEDS ORDERED: TRAM50TA PO ×2 (22:28→22:29)
[2017-04-02 22:35] VITALS: BP 151/80
--- NOTE | 2017-04-03 16:07 | EKG ---
Date Performed: 04/02/2017 Time Performed: 20:13:34 PTAGE: 86 years EKG: SINUS BRADYCARDIA INDETERMINATE AXIS RIGHT BUNDLE BRANCH BLOCK INFERIOR WALL MYOCARDIAL INF ARCTION OF UNDETERMINED AGE WITH POSSIBLE APICAL INVOLVEMENT Since previous tracing, no significant c hange noted ABNORMAL ECG PREVIOUS TRACING : 01/22/2017 07.40 DOCTOR: Shane Hodge Interpretating Date/Time 04/03/2017 16:05:53
== END 2017-04-02 23:08 | disposition home or self-care (01) ==
LOC: NEPE 17:55
DX: R10.32 Left lower quadrant pain (principal); K42.9 Umbilical hernia without obstruction or gangrene; N28.1 Cyst of kidney, acquired; R00.1 Bradycardia, unspecified; I45.10 Unspecified right bundle-branch block; R94.31 Abnormal electrocardiogram [ECG] [EKG]; E78.00 Pure hypercholesterolemia, unspecified; I25.10 Atherosclerotic heart disease of native coronary artery without angina pectoris; I10 Essential (primary) hypertension
CPT/HCPCS: 74177; 80053; 83605; 83690; 85025; 85610; 85730; 93005; 96361; 96374; 96375; 99285; J2270; J2405; J7040; Q9967

== ENCOUNTER 2017-04-07 06:17 | Emergency (ER) | payer MEDICARE ==
[~2017-04-07 06:17] MED LIST changes: +TRAM50TA PO
[2017-04-07 06:20] VITALS: BP 186/84; PULSE 55; RESP 16; TEMP 98.5; O2SAT 95
[2017-04-07 06:41] VITALS: BP 191/83; PULSE 50; RESP 18; O2SAT 99
[2017-04-07 06:59] VITALS: BP 161/72; PULSE 51; RESP 16; O2SAT 95
[2017-04-07] MEDS ORDERED: SODIUM CHLORIDE 0.9% FLUSH 10 ML FLUSH IV FLUSH PRN (07:00)
[2017-04-07 07:21] LABS: AUTOMATED NEUTROPHIL # 3.6 TH/MM3 (1.8-7.7); BASOPHIL # 0.1 TH/MM3 (0-0.2); BASOPHIL % 1.2 % (0.0-2.0); EOSINOPHIL # 0.9 TH/MM3 (0-0.4); HEMATOCRIT 41.8 % (39.0-51.0); HEMO FLAGS DIFF FINAL; LYMPH % 18.9 % (9.0-44.0); LYMPHOCYTE # 1.2 TH/MM3 (1.0-4.8); MEAN CELL VOLUME 89.7 FL (80.0-100.0); MEAN CORPUSCULAR HEMOGLOBIN 30.6 PG (27.0-34.0); MEAN CORPUSCULAR HGB CONC 34.1 % (32.0-36.0); MONO % 8.8 % (0.0-8.0); NEUT % 57.1 % (16.0-70.0); PLATELET COUNT 187 TH/MM3 (150-450); RED BLOOD COUNT 4.66 MIL/MM3 (4.50-5.90); RED CELL DISTRIBUTION WIDTH 13.6 % (11.6-17.2); WHITE BLOOD COUNT 6.3 TH/MM3 (4.0-11.0)
[2017-04-07 07:37] LABS: ALT (GPT) 25 U/L (12-78); ANION GAP 9 MEQ/L (5-15); AST (GOT) 16 U/L (15-37); BICARBONATE 26.3 MEQ/L (21.0-32.0); BLOOD UREA NITROGEN 26 MG/DL (7-18); CHLORIDE 102 MEQ/L (98-107); GLOMERULAR FILTRATION RATE 42 ML/MIN (>89); POTASSIUM 4.6 MEQ/L (3.5-5.1); SODIUM (NA) 137 MEQ/L (136-145)
[2017-04-07 07:39] LABS: ALKALINE PHOSPHATASE 109 U/L (45-117); TOTAL BILIRUBIN ADULT 0.6 MG/DL (0.2-1.0)
[2017-04-07 08:01] LABS: BLOOD, URINE NEG (NEG); COMMENT (UR) CULT NOT INDICATED; CULTURE IF INDICATED CULT NOT INDICATED; GLUCOSE,URINE NEG (NEG); KETONE, URINE NEG (NEG); MUCUS URINE FEW /lpf (OCC); NITRITE,URINE NEG (NEG); SQUAMOUS EPITHELIAL CELL URINE <1 /hpf (0-5); URINE COLOR YELLOW (YELLW/STRAW)
--- NOTE | 2017-04-07 08:49 | PD ---
HPI Chief Complaint: Abdominal Pain Time Seen by Provider: 08:18 Travel History International Travel<30 days: No Contact w/Intl Traveler<30days: No Traveled to known affect area: No History of Present Illness HPI 86-year-old male presents with left lower quadrant abdominal pain that has persisted since his recent evaluation here Thursday. He went to his primary care physician and was prescribed a different pain medication but he was not able to get this filled at the pharmacy. He states this pain increased he elected to come here. He denies any new complaints since discharge here. Quality pain is sharp. Severity is severe. Location is left lower quadrant. He denies specific modifying factors. Duration is persistent since last visit PFSH Past Medical History Hx Anticoagulant Therapy: Yes (1/2b ASA) Heart Rhythm Problems: No Cardiac Catheterization: Yes Cardiovascular Problems: Yes High Cholesterol: Yes Chest Pain: Yes Congestive Heart Failure: No Coronary Artery Disease: Yes Diabetes: No Hypertension: Yes Immunizations Current: Yes Myocardial Infarction: Yes Past Surgical History Cardiac Surgery: Yes Coronary Artery Bypass Graft: Yes (CABG X 3) Joint Replacement: Yes (rt knee, ronal hips. ) Prostatectomy: Yes Other Surgery: Yes (NECK) Social History Alcohol Use: Yes (OCC.) Tobacco Use: No Substance Use: No Allergies-Medications (Allergen,Severity, Reaction): Coded Allergies: meperidine (Verified Adverse Reaction, Intermediate, Nausea/Vomiting, ) Reported Meds & Prescriptions Reported Meds & Active Scripts Active Tramadol (Tramadol HCl) 50 Mg Tab 50 Mg PO Q6H PRN Reported Lamictal (Lamotrigine) 100 Mg Tab 100 Mg PO BID Lisinopril 10 Mg Tab 10 Mg PO DAILY Zetia (Ezetimibe) 10 Mg Tab 10 Mg PO DAILY Atenolol 25 Mg Tab 20 Mg PO BID Lipitor (Atorvastatin Calcium) 10 Mg Tab 10 Mg PO HS Aspirin 81 Mg Chew 162 Mg CHEW ONCE Review of Systems Except as stated in HPI: all other systems reviewed are Neg Physical Exam Narrative GENERAL: Well-nourished, well-developed patient. SKIN: Warm and dry. HEAD: Normocephalic and atraumatic. EYES: No injection or drainage. ENT: No nasal drainage noted. NECK: Supple, trachea midline. CARDIOVASCULAR: Regular rate and rhythm RESPIRATORY: No increased effort. No accessory muscle use. GASTROINTESTINAL: Abdomen soft, tender left lower quadrant, nondistended. NEUROLOGICAL: Awake and alert. Moves all extremities. Normal speech. Data Data Last Documented VS Vital Signs Date Time Temp Pulse Resp B/P (MAP) Pulse Ox O2 Delivery O2 Flow Rate FiO2 04/07/17 09:26 50 16 135/66 (89) 96 Room Air 04/07/17 06:20 98.5 Orders Orders Complete Blood Count With Diff (04/07/17 07:00) Comprehensive Metabolic Panel (04/07/17 07:00) Lipase (04/07/17 07:00) Urinalysis - C+S If Indicated (04/07/17 07:00) Iv Access Insert/Monitor (04/07/17 07:00) Ecg Monitoring (04/07/17 07:00) Oximetry (04/07/17 07:00) Sodium Chloride 0.9% Flush (Ns Flush) (04/07/17 07:00) Ct Abd/Pel W/O Iv Contrast (04/07/17 ) Labs Laboratory Tests Test 04/07/17 07:00 04/07/17 07:20 White Blood Count 6.3 TH/MM3 Red Blood Count 4.66 MIL/MM3 Hemoglobin 14.3 GM/DL Hematocrit 41.8 % Mean Corpuscular Volume 89.7 FL Mean Corpuscular Hemoglobin 30.6 PG Mean Corpuscular Hemoglobin Concent 34.1 % Red Cell Distribution Width 13.6 % Platelet Count 187 TH/MM3 Mean Platelet Volume 9.1 FL Neutrophils (%) (Auto) 57.1 % Lymphocytes (%) (Auto) 18.9 % Monocytes (%) (Auto) 8.8 % Eosinophils (%) (Auto) 14.0 % Basophils (%) (Auto) 1.2 % Neutrophils # (Auto) 3.6 TH/MM3 Lymphocytes # (Auto) 1.2 TH/MM3 Monocytes # (Auto) 0.5 TH/MM3 Eosinophils # (Auto) 0.9 TH/MM3 Basophils # (Auto) 0.1 TH/MM3 CBC Comment DIFF FINAL Differential Comment Blood Urea Nitrogen 26 MG/DL Creatinine 1.59 MG/DL Random Glucose 97 MG/DL Total Protein 8.0 GM/DL Albumin 4.0 GM/DL Calcium Level 8.8 MG/DL Alkaline Phosphatase 109 U/L Aspartate Amino Transf (AST/SGOT) 16 U/L Alanine Aminotransferase (ALT/SGPT) 25 U/L Total Bilirubin 0.6 MG/DL Sodium Level 137 MEQ/L Potassium Level 4.6 MEQ/L Chloride Level 102 MEQ/L Carbon Dioxide Level 26.3 MEQ/L Anion Gap 9 MEQ/L Estimat Glomerular Filtration Rate 42 ML/MIN Lipase 124 U/L Urine Color YELLOW Urine Turbidity CLEAR Urine pH 7.0 Urine Specific [place] 1.015 Urine Protein NEG mg/dL Urine Glucose (UA) NEG mg/dL Urine Ketones NEG mg/dL Urine Occult Blood NEG Urine Nitrite NEG Urine Bilirubin NEG Urine Urobilinogen LESS THAN 2.0 MG/DL Urine Leukocyte Esterase NEG Urine WBC 2 /hpf Urine Squamous Epithelial Cells <1 /hpf Urine Mucus FEW /lpf Microscopic Urinalysis Comment CULT NOT INDICATED MDM Medical Decision Making Medical Screen Exam Complete: Yes Emergency Medical Condition: Yes Medical Record Reviewed: Yes (past history confirmed) Interpretation(s) CBC & BMP Diagram 04/07/17 07:00 Total Protein 8.0, Albumin 4.0, Calcium Level 8.8, Alkaline Phosphatase 109, Aspartate Amino Transf (AST/SGOT) 16, Alanine Aminotransferase (ALT/SGPT) 25, Total Bilirubin 0.6 Last 24 hours Impressions Abdomen/Pelvis CT 04/07/17 0000 Signed Impressions: Service Date/Time: Friday, April 07, 2017 08:49 - CONCLUSION: 1. No evidence of acute abdominal or pelvic process. No masses are identified. 2. Diverticulosis without evidence of diverticulitis. 3. 12 mm nodule left lower lobe. PET/CT scan is recommended to further evaluation if clinically indicated. Amanuel Cobb MD Differential Diagnosis Diverticulitis, stone, UTI, musculoskeletal Narrative Course Lab work was ordered as protocol while I was with a trauma alert and this was reviewed without emergent findings, given persistent pain Will repeat CT imaging and reevaluate CT without emergent findings again, patient may be having very mild case of diverticulitis but given age and renal insufficiency I feel antibiotics are not worth the risk given no CT findings, advised patient to follow diverticular diet and follow closely with primary and fill pain medication prescribed, patient and happy with this plan of care and given return instructions Diagnosis Primary Impression: Abdominal pain Qualified Codes: R10.32 - Left lower quadrant pain Patient Instructions: General Instructions Additional Instructions: return as needed, follow with primary, take pain medication as prescribed Med/Other Pt SpecificInfo: No Change to Meds Disposition: 01 DISCHARGE HOME Condition: Stable Diana Lin MD Apr 07, 2017 08:49
--- NOTE | 2017-04-07 09:10 | RADRPT ---
EXAM DATE/TIME: 04/07/2017 08:49 [facility] COMPARISON: No previous studies available for comparison. INDICATIONS : Left lower quadrant pain. ORAL CONTRAST: No oral contrast ingested. RADIATION DOSE: 7.23 CTDIvol (mGy) MEDICAL HISTORY : Cardiovascular disease. Hypertension. SURGICAL HISTORY : CABG bilateral hip replacements ENCOUNTER: Initial ACUITY: 1 week PAIN SCALE: 4/10 LOCATION: Left lower quadrant TECHNIQUE: Volumetric scanning of the abdomen and pelvis was performed. Using automated exposure control and ad justment of the mA and/or kV according to patient size, radiation dose was kept as low as reasonably achievable to obtain optimal diagnostic quality images. DICOM format image data is available electro nically for review and comparison. FINDINGS: There is a 12 mm nodule the left lung base. PET/CT scan is recommended to further evaluation if clini juliette indicated. There is eventration of the right hemidiaphragm. Coronary artery calcifications are present. The liver and spleen are normal in size and no focal defects are identified. The gallbladder and panc reas are unremarkable. No intrahepatic or extrahepatic ductal dilatation is seen. An inferior vena ca va filter is in place. The adrenal glands are unremarkable. A small hiatal hernia is present. There a re simple cysts bilaterally the largest measuring 3 cm the lower pole of the left. Examination of the pelvis demonstrates no evidence of free fluid or pelvic mass. No abnormally enlarg ed inguinal or retroperitoneal lymph nodes are present. The bladder is unremarkable. There is diverti culosis without evidence of diverticulitis. CONCLUSION: 1. No evidence of acute abdominal or pelvic process. No masses are identified. 2. Diverticulosis without evidence of diverticulitis. 3. 12 mm nodule left lower lobe. PET/CT scan is recommended to further evaluation if clinically indic ated. Amanuel Cobb MD on April 07, 2017 at 9:04 Board Certified Radiologist. This report was verified electronically.
[2017-04-07 09:26] VITALS: BP 135/66; PULSE 50; RESP 16; O2SAT 96
== END 2017-04-07 09:42 | disposition home or self-care (01) ==
LOC: NEPE 06:17
DX: R10.32 Left lower quadrant pain (principal); K57.90 Diverticulosis of intestine, part unspecified, without perforation or abscess without bleeding; R91.1 Solitary pulmonary nodule; E78.00 Pure hypercholesterolemia, unspecified; I25.10 Atherosclerotic heart disease of native coronary artery without angina pectoris; I10 Essential (primary) hypertension; I25.2 Old myocardial infarction; Z79.82 Long term (current) use of aspirin; Z79.899 Other long term (current) drug therapy
CPT/HCPCS: 74176; 80053; 81001; 83690; 85025

== ENCOUNTER 2017-07-08 12:46 | Observation (INO) | payer MEDICARE ==
[2017-07-08 12:49] VITALS: BP 153/74; PULSE 64; RESP 16; TEMP 98.1; O2SAT 99
--- NOTE | 2017-07-08 13:35 | RADRPT ---
EXAM DATE/TIME: 07/08/2017 13:07 [facility] COMPARISON: No previous studies available for comparison. INDICATIONS : Chest pain. MEDICAL HISTORY : None. SURGICAL HISTORY : None. ENCOUNTER: Initial ACUITY: 1 day PAIN SCORE: 10/10 LOCATION: Bilateral upper quadrant chest. FINDINGS: PA and lateral views of the chest demonstrate the lungs to be symmetrically aerated without evidence of mass, infiltrate or effusion. The cardiomediastinal contours are unremarkable. Eventration of th e right hemidiaphragm. Osseous structures are intact. Evidence of prior median sternotomy and CABG. CONCLUSION: No acute cardiopulmonary disease. Roland Lovett MD on July 08, 2017 at 13:32 Board Certified Radiologist. This report was verified electronically.
[2017-07-08 13:43] LABS: AUTOMATED NEUTROPHIL # 4.3 TH/MM3 (1.8-7.7); BASOPHIL # 0.1 TH/MM3 (0-0.2); BASOPHIL % 1.2 % (0.0-2.0); EOSINOPHIL # 0.7 TH/MM3 (0-0.4); EOSINOPHIL % 10.2 % (0.0-4.0); HEMATOCRIT 41.5 % (39.0-51.0); HEMOGLOBIN 14.3 GM/DL (13.0-17.0); LYMPH % 15.5 % (9.0-44.0); MEAN CELL VOLUME 89.2 FL (80.0-100.0); MEAN CORPUSCULAR HEMOGLOBIN 30.7 PG (27.0-34.0); MEAN CORPUSCULAR HGB CONC 34.4 % (32.0-36.0); MONO % 7.7 % (0.0-8.0); MONOCYTE # 0.5 TH/MM3 (0-0.9); NEUT % 65.4 % (16.0-70.0); PLATELET COUNT 218 TH/MM3 (150-450); RED BLOOD COUNT 4.65 MIL/MM3 (4.50-5.90); WHITE BLOOD COUNT 6.5 TH/MM3 (4.0-11.0)
[2017-07-08 13:56] LABS: INTERNATIONAL NORMALIZED RATIO 1.1 RATIO; PROTHROMBIN TIME - PATIENT 10.8 SEC (9.8-11.6)
[2017-07-08 14:06] LABS: BICARBONATE 27.7 MEQ/L (21.0-32.0); BLOOD UREA NITROGEN 30 MG/DL (7-18); CALCIUM 8.8 MG/DL (8.5-10.1); CHLORIDE 108 MEQ/L (98-107); CREATININE 1.61 MG/DL (0.60-1.30); GLOMERULAR FILTRATION RATE 41 ML/MIN (>89); GLUCOSE,RANDOM 103 MG/DL (74-106); MAGNESIUM 2.4 MG/DL (1.5-2.5); SODIUM (NA) 140 MEQ/L (136-145)
[2017-07-08 14:10] LABS: TROPONIN I LESS THAN 0.02 NG/ML (0.02-0.05)
[2017-07-08 15:05] VITALS: BP 165/77; PULSE 46; RESP 18; O2SAT 97
[2017-07-08] MEDS ORDERED: LABETALOL HCL 100 MG/20 ML VIAL IV PUSH ONE (15:15)
--- NOTE | 2017-07-08 15:54 | PD ---
HPI Chief Complaint: Chest Pain Time Seen by Provider: 14:51 Travel History International Travel<30 days: No Contact w/Intl Traveler<30days: No Traveled to known affect area: No History of Present Illness HPI This patient complains of chest pain. At 11 AM he had a spell of sternal heaviness and pressure which lasted 5-10 minutes. It resolved spontaneously. He is currently pain-free. It was moderate while it lasted. No alleviating factors. No exacerbating factors. He has history of CAD and bypass grafting surgery. He had an aspirin today. Denies cough or fever or shortness of breath. PFSH Past Medical History Hx Anticoagulant Therapy: Yes (12b ASA) Heart Rhythm Problems: No Cardiac Catheterization: Yes Cardiovascular Problems: Yes High Cholesterol: Yes Chest Pain: Yes Congestive Heart Failure: No Coronary Artery Disease: Yes Diabetes: No Hypertension: Yes Immunizations Current: Yes Myocardial Infarction: Yes Past Surgical History Appendectomy: Yes Cardiac Surgery: Yes Coronary Artery Bypass Graft: Yes (CABG X 3) Joint Replacement: Yes (rt knee, ronal hips. ) Prostatectomy: Yes Other Surgery: Yes (NECK) Social History Alcohol Use: Yes (OCC.) Tobacco Use: No Substance Use: No Allergies-Medications (Allergen,Severity, Reaction): Coded Allergies: meperidine (Verified Adverse Reaction, Intermediate, Nausea/Vomiting, 07/08) Reported Meds & Prescriptions Reported Meds & Active Scripts Active Tramadol (Tramadol HCl) 50 Mg Tab 50 Mg PO Q6H PRN Reported Lamictal (Lamotrigine) 100 Mg Tab 100 Mg PO BID Lisinopril 10 Mg Tab 10 Mg PO DAILY Zetia (Ezetimibe) 10 Mg Tab 10 Mg PO DAILY Atenolol 25 Mg Tab 20 Mg PO BID Lipitor (Atorvastatin Calcium) 10 Mg Tab 10 Mg PO HS Aspirin 81 Mg Chew 162 Mg CHEW ONCE Review of Systems General / Constitutional: No: Fever Eyes: No: Visual changes HENT: No: Headaches Cardiovascular: Positive: Chest Pain or Discomfort Respiratory: No: Shortness of Breath Gastrointestinal: No: Abdominal Pain Genitourinary: No: Dysuria Musculoskeletal: No: Pain Skin: No Rash Neurologic: No: Weakness Psychiatric: No: Depression Endocrine: No: Polydipsia Hematologic/Lymphatic: No: Easy Bruising Physical Exam Narrative GENERAL: Well-nourished, well-developed patient in no apparent distress. SKIN: Focused skin assessment reveals no rash and nodules. Skin is Warm and dry. HEAD: Atraumatic. Normocephalic. EYES: Pupils equal and round. No scleral icterus. No injection or drainage. ENT: No nasal bleeding or discharge. Mucous membranes pink and moist. NECK: Trachea midline. No JVD. CARDIOVASCULAR: Regular rate and rhythm. No murmur appreciated. Bradycardic at 50 RESPIRATORY: No accessory muscle use. Clear to auscultation. Breath sounds equal bilaterally. GASTROINTESTINAL: Abdomen soft, non-tender, nondistended. Hepatic and splenic margins not palpable. MUSCULOSKELETAL: No obvious deformities. No clubbing. No cyanosis. No edema. NEUROLOGICAL: Awake and alert. No obvious cranial nerve deficits. Motor grossly within normal limits. Normal speech. PSYCHIATRIC: Appropriate mood and affect; insight and judgment normal. Data Data Last Documented VS Vital Signs Date Time Temp Pulse Resp B/P (MAP) Pulse Ox O2 Delivery O2 Flow Rate FiO2 07/08/17 15:05 46 18 165/77 (106) 97 Room Air 07/08/17 12:49 98.1 Orders Orders Electrocardiogram (07/08/17 12:54) Basic Metabolic Panel (Bmp) (07/08/17 12:54) Ckmb (Isoenzyme) Profile (07/08/17 12:54) Complete Blood Count With Diff (07/08/17 12:54) Magnesium (Mg) (07/08/17 12:54) Prothrombin Time / Inr (Pt) (07/08/17 12:54) Act Partial Throm Time (Ptt) (07/08/17 12:54) Troponin I (07/08/17 12:54) Lipase (07/08/17 12:54) Chest, Pa & Lat (07/08/17 12:54) CKMB (07/08/17 13:20) CKMB% (07/08/17 13:20) Labetalol Inj (Trandate Inj) (07/08/17 15:15) Labs Laboratory Tests Test 07/08/17 13:20 White Blood Count 6.5 TH/MM3 Red Blood Count 4.65 MIL/MM3 Hemoglobin 14.3 GM/DL Hematocrit 41.5 % Mean Corpuscular Volume 89.2 FL Mean Corpuscular Hemoglobin 30.7 PG Mean Corpuscular Hemoglobin Concent 34.4 % Red Cell Distribution Width 14.0 % Platelet Count 218 TH/MM3 Mean Platelet Volume 9.0 FL Neutrophils (%) (Auto) 65.4 % Lymphocytes (%) (Auto) 15.5 % Monocytes (%) (Auto) 7.7 % Eosinophils (%) (Auto) 10.2 % Basophils (%) (Auto) 1.2 % Neutrophils # (Auto) 4.3 TH/MM3 Lymphocytes # (Auto) 1.0 TH/MM3 Monocytes # (Auto) 0.5 TH/MM3 Eosinophils # (Auto) 0.7 TH/MM3 Basophils # (Auto) 0.1 TH/MM3 CBC Comment DIFF FINAL Differential Comment Prothrombin Time 10.8 SEC Prothromb Time International Ratio 1.1 RATIO Activated Partial Thromboplast Time 25.0 SEC Blood Urea Nitrogen 30 MG/DL Creatinine 1.61 MG/DL Random Glucose 103 MG/DL Calcium Level 8.8 MG/DL Magnesium Level 2.4 MG/DL Sodium Level 140 MEQ/L Potassium Level 4.8 MEQ/L Chloride Level 108 MEQ/L Carbon Dioxide Level 27.7 MEQ/L Anion Gap 4 MEQ/L Estimat Glomerular Filtration Rate 41 ML/MIN Total Creatine Kinase 106 U/L Creatine Kinase MB 1.4 NG/ML Troponin I LESS THAN 0.02 NG/ML Lipase 117 U/L MDM Medical Decision Making Medical Screen Exam Complete: Yes Emergency Medical Condition: Yes Medical Record Reviewed: Yes Differential Diagnosis Differential diagnosis includes TX, angina, pericarditis, pleurisy, GERD, anxiety. Narrative Course I have reviewed the patient's electronic medical record. Reviewed his January 2017 chest pain center admission as well as stress testing EKG shows sinus bradycardia with right bundle branch block, prior EKG is similar Lab studies including cardiac enzymes are normal Chest x-ray is negative He is currently pain-free and had aspirin therapy today I reviewed his case with covering chain link fence installer Dr. Demetrio Nicholson Recommended observing on telemetry in the hospital to make sure he did not have recurrent pain and consider medicine adjustments. Does not recommend repeat stress testing or catheterization at this time I spoke with DAYSI Arcos of the chest pain center who declined to have this patient in the chest pain center so I have called the hospitalist Diagnosis Primary Impression: Chest pain Qualified Codes: R07.9 - Chest pain, unspecified Additional Impressions: Hx of CABG CAD (coronary artery disease) Qualified Codes: I25.10 - Atherosclerotic heart disease of [place] coronary artery without angina pectoris; I25.84 - Coronary atherosclerosis due to calcified coronary lesion Admitting Information Admitting Physician Requests: Mendez Denney MD Jul 08, 2017 15:54
[2017-07-08] MEDS ORDERED: SODIUM CHLORIDE 0.9% FLUSH 10 ML FLUSH IV FLUSH PRN (17:00)
[2017-07-08] MEDS ORDERED: NALOXONE HCL 0.4 MG/ML AMP IV PUSH PRN (17:00)
[2017-07-08 17:11] VITALS: BP 150/72; O2SAT 95
--- NOTE | 2017-07-08 17:57 | HHI.HP ---
[facility], Admission Diagnosis chest pain, CAD Diagnoses: (1) Chest pain Diagnosis: Principal (2) CAD (coronary artery disease) (3) Hyperlipidemia (4) Hypertension (5) Hx of CABG Chief Complaint: Chest pain this morning Travel History International Travel<30 Days: No Contact w/Intl Traveler <30 Da: No Traveled to Known Affected Are: No History of Present Illness Written by Shai Jules, acting as scribe for Dr. Pope on 07/08/17 at 17:45. 87-year-old male with PMH significant for HTN, CAD, ME x3 with angioplasty, CABG , hyperlipidemia, and seizure disorder who presents to the emergency department with complaints of chest pain earlier this morning. Patient reports that chest pain began in the center of his chest with no radiation to arm or jaw. He describes pain as pressure in consistency, he also became pale as noted by his with diaphoresis. Chest pain resolved after 5-10 minutes without any intervention. He decided to come into the emergency department because of his history of 3 prior MIs along with bypass surgery. At the moment he denies any chest pain, or shortness of breath. In the past several weeks he denies any chest pain on exertion, shortness of breath, or leg swelling. Denies any recent fevers, chills, nausea, vomiting, diarrhea, black or bloody stools. He also denies any dysuria, or hematuria. He reports that he had a stress test done recently which to his knowledge was negative. He recently moved to [facility] 10 months ago but is planning on moving back home [place] to follow up with his regular design architect. Review of Systems Except as stated in HPI: all other systems reviewed are Neg Past Family Social History Past Medical History HTN CAD angioplasty and bypass ME 3 IVC filter, had prostatectomy with subsequent suspected DVT Enlarged prostate Seizure disorder Past Surgical History Strangulation of vocal cord nerve, with vocal cord nerve surgery bilateral hip replacement Right knee replacements Appendectomy Left lower foot surgery due to fracture Right foot tumor removal, noncancerous Bilateral cataract surgery Allergies: Coded Allergies: meperidine (Verified Adverse Reaction, Intermediate, Nausea/Vomiting, 07/08) Family History Father: Glaucoma Social History Tobacco use: Denies Alcohol use: moderately Illicit drug use: denies Lives with , still driving. Physical Exam Vital Signs Vital Signs Date Time Temp Pulse Resp B/P (MAP) Pulse Ox O2 Delivery O2 Flow Rate FiO2 07/08/17 17:11 47 18 150/72 (98) 95 Room Air 07/08/17 15:05 46 18 165/77 (106) 97 Room Air 07/08/17 12:49 98.1 64 16 153/74 (100) 99 Physical Exam GENERAL: This is a well-nourished, well-developed patient, in no apparent distress. SKIN: No rashes, ecchymoses or lesions. Cool and dry. HEAD: Atraumatic. Normocephalic. No temporal or scalp tenderness. EYES: No scleral icterus. No injection or drainage. ENT: Nose without bleeding, purulent drainage or septal hematoma.Airway patent. NECK: Trachea midline. No JVD Supple, nontender, no meningeal signs. CARDIOVASCULAR: Regular rate and rhythm without murmurs, gallops, or rubs. RESPIRATORY: Clear to auscultation. Breath sounds equal bilaterally. No wheezes , rales, or rhonchi. GASTROINTESTINAL: Abdomen soft, non-tender, nondistended. . No guarding. MUSCULOSKELETAL: Extremities without clubbing, cyanosis, or edema. No calf tenderness. NEUROLOGICAL: Awake and alert. Motor and sensory grossly within normal limits Normal speech. Laboratory Laboratory Tests Test 07/08/17 13:20 07/08/17 17:30 White Blood Count 6.5 Red Blood Count 4.65 Hemoglobin 14.3 Hematocrit 41.5 Mean Corpuscular Volume 89.2 Mean Corpuscular Hemoglobin 30.7 Mean Corpuscular Hemoglobin Concent 34.4 Red Cell Distribution Width 14.0 Platelet Count 218 Mean Platelet Volume 9.0 Neutrophils (%) (Auto) 65.4 Lymphocytes (%) (Auto) 15.5 Monocytes (%) (Auto) 7.7 Eosinophils (%) (Auto) 10.2 Basophils (%) (Auto) 1.2 Neutrophils # (Auto) 4.3 Lymphocytes # (Auto) 1.0 Monocytes # (Auto) 0.5 Eosinophils # (Auto) 0.7 Basophils # (Auto) 0.1 CBC Comment DIFF FINAL Differential Comment Prothrombin Time 10.8 Prothromb Time International Ratio 1.1 Activated Partial Thromboplast Time 25.0 Blood Urea Nitrogen 30 Creatinine 1.61 Random Glucose 103 Calcium Level 8.8 Magnesium Level 2.4 Sodium Level 140 Potassium Level 4.8 Chloride Level 108 Carbon Dioxide Level 27.7 Anion Gap 4 Estimat Glomerular Filtration Rate 41 Total Creatine Kinase 106 Creatine Kinase MB 1.4 Troponin I LESS THAN 0.02 Lipase 117 Result Diagram: 07/08/17 1320 07/08/17 1320 Imaging Last Impressions Chest X-Ray 07/08/17 1254 Signed Impressions: Service Date/Time: Saturday, July 08, 2017 13:07 - CONCLUSION: No acute cardiopulmonary disease. MD Jacqui Black VTE Risk Assessment Jacqui VTE Risk Assessment: Mod/High Risk (score >= 2) Caprini Risk Assessment Model Point Value = 1 Point Value = 2 Point Value = 3 Point Value = 5 Age 41-60 Minor surgery BMI > 25 kg/m2 Swollen legs Varicose veins or History of unexplained or recurrent spontaneous Oral contraceptives or hormone replacement Sepsis (< 1 month) Serious lung disease, including pneumonia (< 1 month) Abnormal pulmonary function Acute myocardial infarction Congestive heart failure (< 1 month) History of inflammatory bowel disease Medical patient at bed rest Age 61-74 Arthroscopic surgery Major open surgery (> 45 min) Laparoscopic surgery (> 45 min) Malignancy Confined to bed (> 72 hours) Immobilizing plaster cast Central venous access Age >= 75 History of VTE Family history of VTE Factor V Leiden Prothrombin [id number] Lupus anticoagulant Anticardiolipin antibodies Elevated serum homocysteine Heparin-induced thrombocytopenia Other congenital or acquired thrombophilia Stroke (< 1 month) Elective arthroplasty Hip, pelvis, or leg fracture Acute spinal cord injury (< 1 month) Prophylaxis Regimen Total Risk Factor Score Risk Level Prophylaxis Regimen 0-1 Low Early ambulation 2 Moderate Order ONE of the following: *Sequential Compression Device (SCD) *Heparin 5000 units SQ BID 3-4 Higher Order ONE of the following medications: *Heparin 5000 units SQ TID *Enoxaparin/Lovenox 40 mg SQ daily (WT < 150 kg, CrCl > 30 mL/min) *Enoxaparin/Lovenox 30 mg SQ daily (WT < 150 kg, CrCl > 10-29 mL/min) *Enoxaparin/Lovenox 30 mg SQ BID (WT < 150 kg, CrCl > 30 mL/min) AND/OR *Sequential Compression Device (SCD) 5 or more Highest Order ONE of the following medications: *Heparin 5000 units SQ TID (Preferred with Epidurals) *Enoxaparin/Lovenox 40 mg SQ daily (WT < 150 kg, CrCl > 30 mL/min) *Enoxaparin/Lovenox 30 mg SQ daily (WT < 150 kg, CrCl > 10-29 mL/min) *Enoxaparin/Lovenox 30 mg SQ BID (WT < 150 kg, CrCl > 30 mL/min) AND *Sequential Compression Device (SCD) Assessment and Plan Assessment and Plan 87-year-old male with PMH significant for HTN, CAD, ME x3 with angioplasty, CABG , hyperlipidemia, and seizure disorder who presents to the emergency department with complaints of chest pain earlier this morning. Chest pain r/o ACS - significant cardiac history including prior ME, and CABG. - Recently underwent stress test on 01/22/17 which was negative -Review of ED documentation, ED physician contacted covering design architect who recommended observation on telemetry, with continued monitoring for pain. Did not recommend repeating stress test or cardiac catheterization. -Serial troponins so far 2 are negative, continue following -Initial EKG in the ED completed showing sinus bradycardia with a heart rate of 47 and right bundle branch block. Continue following serial EKGs -Chest x-ray reviewed, no acute cardiopulmonary disease per - CP free for now, Sublingual nitro for chest pain as needed HTN -BP with systolic 150-160's/70's - Looks like Labetalol was ordered, but not administered. - Goal BP <150/90 (no Hx DM or CKD) - Will resume patients lisinopril 10 mg daily, will hold off on atenolol due to bradycardia. HLD -Continue home dose of atorvastatin and Zetia Seizure disorder -Continue home dose Lamictal 100 mg twice daily DVT prophylaxis-SCD's/CARTER's/ IVC filter in place. This note was transcribed by chester [Shai Jules]. I, Dr. Mauro Pope personally performed the history, physical exam, and medical decision making; and confirmed the accuracy of the information in the transcribed note. Authenticated by Dr. Mauro Pope on 07/08/17 at 17:45. Discussed Condition With patient, ER physician, nursing staff Problem Qualifiers (1) Chest pain: Qualified Codes: R07.9 - Chest pain, unspecified (2) CAD (coronary artery disease): Qualified Codes: I25.10 - Atherosclerotic heart disease of [place] coronary artery without angina pectoris; I25.84 - Coronary atherosclerosis due to calcified coronary lesion Shai Jules Jul 08, 2017 17:57 Mauro Pope MD Jul 10, 2017 12:56
[2017-07-08 18:07] LABS: TROPONIN I LESS THAN 0.02 NG/ML (0.02-0.05)
[2017-07-08] MEDS ORDERED: traMADol HCL 50 MG TAB PO PRN (18:30)
[2017-07-08 19:21] VITALS: BP 184/83; PULSE 50; RESP 16; TEMP 98.4; O2SAT 97
[2017-07-08] MEDS: SODIUM CHLORIDE 0.9% FLUSH 10 ML FLUSH IV FLUSH SCH ×2 (20:04→21:45)
[2017-07-08] MEDS ORDERED: ASPIRIN 81 MG CHEW TAB CHEW ONE (20:30)
[2017-07-08] MEDS ORDERED: ATORVASTATIN 10 MG TAB PO SCH (21:00)
[2017-07-08] MEDS: lamoTRIgine 100 MG TAB PO SCH (21:45)
[2017-07-09 00:28] VITALS: BP 173/87; PULSE 56; RESP 16; TEMP 98.2; O2SAT 96
[2017-07-09 02:32] LABS: AUTOMATED NEUTROPHIL # 3.4 TH/MM3 (1.8-7.7); BASOPHIL # 0.1 TH/MM3 (0-0.2); BASOPHIL % 1.3 % (0.0-2.0); EOSINOPHIL # 0.7 TH/MM3 (0-0.4); EOSINOPHIL % 12.5 % (0.0-4.0); HEMATOCRIT 40.1 % (39.0-51.0); HEMOGLOBIN 13.6 GM/DL (13.0-17.0); LYMPH % 19.8 % (9.0-44.0); LYMPHOCYTE # 1.2 TH/MM3 (1.0-4.8); MEAN CELL VOLUME 88.8 FL (80.0-100.0); MEAN CORPUSCULAR HEMOGLOBIN 30.1 PG (27.0-34.0); MEAN CORPUSCULAR HGB CONC 33.9 % (32.0-36.0); MEAN PLATELET VOLUME 8.7 FL (7.0-11.0); MONO % 8.8 % (0.0-8.0); MONOCYTE # 0.5 TH/MM3 (0-0.9); NEUT % 57.6 % (16.0-70.0); PLATELET COUNT 182 TH/MM3 (150-450); RED BLOOD COUNT 4.52 MIL/MM3 (4.50-5.90); RED CELL DISTRIBUTION WIDTH 13.8 % (11.6-17.2)
[2017-07-09 02:52] LABS: BICARBONATE 28.3 MEQ/L (21.0-32.0); BLOOD UREA NITROGEN 29 MG/DL (7-18); CALCIUM 8.6 MG/DL (8.5-10.1); CHLORIDE 108 MEQ/L (98-107); CREATININE 1.36 MG/DL (0.60-1.30); GLOMERULAR FILTRATION RATE 50 ML/MIN (>89); GLUCOSE,RANDOM 86 MG/DL (74-106); SODIUM (NA) 141 MEQ/L (136-145)
[2017-07-09 02:54] LABS: TROPONIN I LESS THAN 0.02 NG/ML (0.02-0.05)
[2017-07-09 04:02] VITALS: BP 131/62; PULSE 51; RESP 14; TEMP 98.4; O2SAT 98
[2017-07-09 05:13] VITALS: PULSE 44
[2017-07-09 07:31] VITALS: BP 159/73; PULSE 50; RESP 19; TEMP 97.6; O2SAT 94
[2017-07-09 07:34] VITALS: PULSE 47
--- NOTE | 2017-07-09 08:14 | EKG ---
Date Performed: 07/08/2017 Time Performed: 13:14:17 PTAGE: 87 years EKG: SINUS BRADYCARDIA RIGHT BUNDLE BRANCH BLOCK LEFT ANTERIOR FASCICULAR BLOCK INFERIOR MYOCARD IAL INFARCTION ABNORMAL ECG PREVIOUS TRACING : 04/02/2017 20.13 Since the prior tracing, there has been no significant pereira DOCTOR: Emili Bowers Interpretating Date/Time 07/09/2017 08:11:27
--- NOTE | 2017-07-09 08:14 | EKG ---
Date Performed: 07/08/2017 Time Performed: 17:27:58 PTAGE: 87 years EKG: SINUS BRADYCARDIA WITH FIRST DEGREE AV BLOCK RIGHT BUNDLE BRANCH BLOCK INFERIOR MYOCARDIAL INFARCTION ABNORMAL ECG Since the prior tracing, there has been no significant change DOCTOR: Emili Bowers Interpretating Date/Time 07/09/2017 08:11:36
[2017-07-09] MEDS ORDERED: EZETIMIBE 10 MG TAB PO SCH (09:00)
[2017-07-09] MEDS ORDERED: LISINOPRIL 10 MG TAB PO SCH (09:00)
[2017-07-09] MEDS: lamoTRIgine 100 MG TAB PO SCH (09:00)
[2017-07-09 11:10] VITALS: BP 140/71; PULSE 55; RESP 19; TEMP 97.8; O2SAT 94
--- NOTE | 2017-07-09 13:19 | HHI.DCPOC ---
Discharge Care Plan Diagnosis: (1) CAD (coronary artery disease) (2) Chest pain (3) Hyperlipidemia (4) Hypertension Goals to Promote Your Health * To prevent worsening of your condition and complications * To maintain your health at the optimal level Directions to Meet Your Goals Take your medications as prescribed Follow your dietary instruction Follow activity as directed Keep your appointments as scheduled Take your immunizations and boosters as scheduled If your symptoms worsen call your PCP, if no PCP go to Urgent Care Center or Emergency Room Smoking is Dangerous to Your Health. Avoid second hand smoke Call the 24-hour hour crisis hotline for domestic abuse at Mendez Toledo MD Jul 09, 2017 13:19
--- NOTE | 2017-07-09 13:25 | HHI.PR ---
Subjective Remarks Follow up chest pain. Patient states that his chest pain has resolved. Denies dyspnea, nausea, vomiting. Feels ready to go home. Objective Vitals Vital Signs Date Time Temp Pulse Resp B/P (MAP) Pulse Ox O2 Delivery O2 Flow Rate FiO2 07/09/17 11:10 97.8 55 19 140/71 (94) 94 07/09/17 07:34 47 07/09/17 07:31 97.6 50 19 159/73 (101) 94 07/09/17 05:13 44 07/09/17 04:02 98.4 51 14 131/62 (85) 98 07/09/17 00:28 98.2 56 16 173/87 (115) 96 07/08/17 19:24 07/08/17 19:21 98.4 50 16 184/83 (116) 97 07/08/17 17:11 47 18 150/72 (98) 95 Room Air 07/08/17 15:05 46 18 165/77 (106) 97 Room Air I/O 07/08/17 07/08/17 07/08/17 07/09/17 07/09/17 07/09/17 07:00 15:00 23:00 07:00 15:00 23:00 Intake Total 300 ml Balance 300 ml Intake Oral 300 ml Result Diagram: 07/09/1722207/09/17 0223 Imaging Last Impressions Chest X-Ray 07/08/17 1254 Signed Impressions: Service Date/Time: Saturday, July 08, 2017 13:07 - CONCLUSION: No acute cardiopulmonary disease. Roland Lovett MD Objective Remarks General: Elderly male in no acute distress. Sitting up in a chair. Heart: Regular rate and rhythm. No murmur. Lungs: Clear to auscultation bilaterally. No wheezes, rales, or rhonchi. Breathing is nonlabored. Abdomen: Soft, nontender, nondistended. Extremities: No lower extremity edema. Psych: Alert and oriented. Procedures None Urinary Catheter: No Vascular Central Line Catheter: No A/P Problem List: (1) Chest pain ICD Code: R07.9 - Chest pain, unspecified Status: Acute (2) CAD (coronary artery disease) ICD Code: I25.10 - Atherosclerotic heart disease of [place] coronary artery without angina pectoris (3) Hyperlipidemia ICD Code: E78.5 - Hyperlipidemia, unspecified (4) Hypertension ICD Code: I10 - Essential (primary) hypertension (5) Hx of CABG ICD Code: Z95.1 - Presence of aortocoronary bypass graft Assessment and Plan 1. Chest pain: Serial cardiac enzymes are negative. Chest pain has resolved. Discussed with Dr. Nicholson, covering line department supervisor. Patient is clear for discharge with instructions to follow-up with his primary line department supervisor, Dr. Fox. 2. Bradycardia: Beta-tricia on hold. Follow-up with cardiology. 3. Hypertension: Continue lisinopril. Atenolol on hold secondary to bradycardia. 4. Hyperlipidemia: Continue atorvastatin, Zetia. 5. Seizure disorder: Continue Lamictal. 6. DVT prophylaxis: SCDs, CARTER malik. Discharge Planning Discharge home in stable condition. Heart healthy diet. Activity as tolerated. Problem Qualifiers (1) Chest pain: Qualified Codes: R07.9 - Chest pain, unspecified (2) CAD (coronary artery disease): Qualified Codes: I25.10 - Atherosclerotic heart disease of [place] coronary artery without angina pectoris; I25.84 - Coronary atherosclerosis due to calcified coronary lesion Mendez Toledo MD Jul 09, 2017 13:25
--- NOTE | 2017-07-09 19:52 | EKG ---
Date Performed: 07/09/2017 Time Performed: 02:13:25 PTAGE: 87 years EKG: SINUS BRADYCARDIA WITH FIRST DEGREE AV BLOCK INDETERMINATE AXIS RIGHT BUNDLE BRANCH BLOCK I NFERIOR MYOCARDIAL INFARCTION ABNORMAL ECG PREVIOUS TRACING : 07/08/2017 17.27 Since the prior tracing, there has been no significant pereira DOCTOR: Emili Bowers Interpretating Date/Time 07/09/2017 19:49:58
== END 2017-07-09 15:41 | disposition home or self-care (01) ==
LOC: NEPC 12:46 → NEDA 17:03 → NEPGCP 19:03
PROVIDERS: ADMIT Family Medicine; ATTEND Family Medicine
DX: R07.9 Chest pain, unspecified (principal); I25.10 Atherosclerotic heart disease of native coronary artery without angina pectoris; I10 Essential (primary) hypertension; I25.2 Old myocardial infarction; E78.00 Pure hypercholesterolemia, unspecified; G40.909 Epilepsy, unspecified, not intractable, without status epilepticus; I45.10 Unspecified right bundle-branch block; R00.1 Bradycardia, unspecified; I44.4 Left anterior fascicular block; I44.0 Atrioventricular block, first degree; R94.31 Abnormal electrocardiogram [ECG] [EKG]; Z79.899 Other long term (current) drug therapy; Z79.82 Long term (current) use of aspirin; Z95.1 Presence of aortocoronary bypass graft
CPT/HCPCS: 71046; 80048; 82550; 82552; 83690; 83735; 84484; 85025; 85610; 85730; 93005; 97161; 99285; G0378; G8987; G8988; G8989